=== PATIENT | male | born 1985 | race Caucasian/White ===

== ENCOUNTER → 2019-10-23 | Outpatient (CLI) | payer SELFPAY | PROVIDERS: Family Provider Nurse Practitioner | DX: J01.90 Acute sinusitis, unspecified (principal); R07.89 Other chest pain | CPT/HCPCS: 71046 ==

== ENCOUNTER → 2019-10-29 12:32 | Outpatient (BNVA) | payer OTHER, SELFPAY | PROVIDERS: Family Provider Nurse Practitioner; PCP Family Medicine; Visit Provider Counselor Professional | DX: F43.12 Post-traumatic stress disorder, chronic (principal); F32.2 Major depressive disorder, single episode, severe without psychotic features; F41.1 Generalized anxiety disorder | CPT/HCPCS: 90834 ==

== ENCOUNTER 2019-11-16 07:54 | Outpatient (CLI) | payer OTHER, SELFPAY ==
--- NOTE | 2019-11-16 08:19 | CT_ITS ---
WS: [id number] CT CHEST TECHNIQUE: Noncontrast CT of the chest with coronal and sagittal reformatted images. CLINICAL INFORMATION: PLEURITIC CHEST PAIN COMPARISON: None. DLP: [id number] scans at [facility] use at least one of these dose optimization techniques: automat ed exposure control; mA and/or kV adjustment per patient size (includes targeted exams where dose is matched to clinical indication); or iterative reconstruction. FINDINGS: Well-circumscribed low-attenuation right middle mediastinal low-attenuation lesion as seen on the rec ent radiograph. This measures approximately 5.1 x 4.6 x 6.0 cm and abuts the left atrium. Low-attenua tion lesion demonstrates no significant enhancement. Cystic lesion is in a subcarinal location eccent aurelio to the right and abuts the right mainstem bronchus and esophagus. No visualized fistulous connect ion. Minimal narrowing of the right distal main stem bronchus. This lesion is likely long-standing an d benign. Calcified granuloma left lung base. No acute pulmonary infiltrates. No consolidation pleural fluid. N o suspicious pulmonary parenchymal opacities. No mediastinal or hilar lymphadenopathy. Normal thyroid gland. Calcified left hilar nodes. No axillar y lymphadenopathy. Normal thyroid gland. Adrenal glands are normal. CT/CT chest wo/w con [id number] IMPRESSION: 1. Well-circumscribed middle mediastinal cystic lesion measuring 5.1 x 4.6 x 6 .0 CM. No enhancement. This abuts the right mainstem bronchus and esophagus wit h mild narrowing. 2. This has a benign appearance and is likely congenital or long-standing. Di fferential considerations include esophageal duplication cyst, bronchogenic cys t, or pericardial cyst. 3. No fistulous connections between the cyst and the endobronchial tree or eso phagus. 4. No acute pulmonary infiltrates. 5. No mediastinal or hilar lymphadenopathy.
[2019-11-16] MEDS: iohexol 300 mg/mL 100 mL Btl IV (09:10)
== END 2019-11-16 07:55 | disposition home or self-care (01) ==
LOC: RADWPI 07:58
PROVIDERS: Family Provider Nurse Practitioner; PCP Nurse Practitioner Family; Visit Provider Nurse Practitioner Family
DX: R07.89 Other chest pain (principal); Q34.1 Congenital cyst of mediastinum
CPT/HCPCS: 71270; Q9967

== ENCOUNTER → 2019-11-19 14:43 | Outpatient (BNVA) | payer OTHER, SELFPAY | PROVIDERS: Family Provider Nurse Practitioner; PCP Nurse Practitioner Family; Visit Provider Counselor Professional | DX: F43.12 Post-traumatic stress disorder, chronic (principal); F32.2 Major depressive disorder, single episode, severe without psychotic features; F41.1 Generalized anxiety disorder | CPT/HCPCS: 90834 ==

== ENCOUNTER 2020-01-18 05:57 | Day surgery (SDC) | payer OTHER, SELFPAY ==
[2020-01-18] VITALS (9 sets, daily range): BP systolic 110–136; BP diastolic 72–94; PULSE 82–121; RESP 14–20; TEMP 36.4–36.9; O2SAT 94–98
[2020-01-18] MEDS: sodium chloride 0.9% 1,000 ML 30 ML IV (06:19)
--- NOTE | 2020-01-18 06:33 | ANES.PREANE2 ---
Pre-Anesthetic Assessment Pre-Anesthetic Assessment: Height/Weight: Height 1.91 m Weight 72.575 kg Temp Pulse Resp BP Pulse Ox 98.4 F 82 18 131/79 98 01/18/20 06:12 01/18/20 06:12 01/18/20 06:12 01/18/20 06:12 01/18/20 06:12 Preop Diagnosis: Bronchogenic Cyst Proposed Procedure: Operation Date: 01/18/20 07:00 Proposed Procedures p Ebus Aspirationof Broncogentic Cyst 45529 91826/G98.4(Not Applicable) - Wendi Louis MD Familial anesthetic complications: No trouble with previous anesthesia Was Beta Dino taken within 24 hours: N/A Last intake: Intake Last Liquid Date 01/17/20 Last Liquid Time 23:45 Last Solid Date 01/17/20 Last Solid Time 22:30 Social: Social History: No alcohol and No tobacco Exam: Pre-Anes Outpt Exam: alert, oriented x 3, clear to auscultation bilaterally and regular rate & rhythm Airway: Cervical ROM: WNL MP: 3 Dentition: Chipped Pulmonary: Comments: cyst w/ coughing and SOB (months) CV/HEM: CV/HEM: Murmur : : None reported Hepatic: Hepatic: None reported GI: GI: None reported Metabolic: Metabolic: None reported Musc/skel: Musc/skel: None reported Neuropsych: Neuropsych: None reported Anesthetic Plan: ASA status: 2 Anesthesia: General Risk of > 500 ml blood loss (7ml/kg in children): No Meds/Allergies Current Medications: Current Medications Generic Name Dose Route Start Last Admin Trade Name Freq PRN Reason Stop Dose Admin Sodium Chloride 1,000 mls @ 30 ml s/hr 01/18/20 06:15 01/18/20 06:19 Sodium Chloride 0.9% IV 01/19/20 06:14 30 mls/hr .Q24H TORSTEN Administration PFSH Anesthesia PFSH: Social History Smoking and tobacco status: former smoker Quit status (tobacco): has quit using tobacco Year quit tobacco: 2009 - 1.5 PPD x 8 Years Second hand smoke exposure: Yes Alcohol intake: never Lives independently: Yes Household members: spouse and children Marital status: Current occupational status: employed Current occupational exposures/hazards: Yes History of recent travel: No Current gender identity: Male Data Anesthesia Cardiac Studies: No Data to Display
--- NOTE | 2020-01-18 06:42 | W.PM.OPSUD ---
Surgery/Procedure H&P Update DATE OF PROCEDURE: January 18, 2020 DATE H&P PERFORMED: 01/15/20 H&P UPDATE INFORMATION: I have reviewed H&P completed within last 30 days, I have examined patient prior to procedure and No changes to prior documentation PREOP DIAGNOSIS: Bronchogenic Cyst PLANNED PROCEDURE: Bronchoscopy with inspection of the airway, possible endobronchial biopsy, bronchoalveolar lavage, endobronchial ultrasound-guided transbronchial needle aspiration of the bronchogenic cyst and control of bleeding. Operation Date: 01/18/20 07:00 Proposed Procedures p Ebus Aspirationof Broncogentic Cyst 66265 03875/G98.4(Not Applicable) - Bipsaritha Louis MD
[2020-01-18] MEDS: lidocaine 1% INJ 20 mL XX (07:14)
--- NOTE | 2020-01-18 07:52 | SUR.PHASEI ---
0749 PATIENT TO PACU AT THIS TIME. RR EVEN AND UNLABORED. ORAL AIRWAY IN PLACE, PLACED ON SIMPLE MASK AT 8L, SPO2 95%. ORAL AIRWAY REMOVED AT 0750.
--- NOTE | 2020-01-18 08:21 | SUR.PHASEI ---
0818 PATIENT TO OPS AT THIS TIME. COUGH NOTED. RR EVEN AND UNLABORED. SPO2 95-96% ON RA. PATIENT DENIES PAIN.
--- NOTE | 2020-01-18 08:27 | PM.OP ---
Operative Report Date of procedure: January 18, 2020 Pre-op Diagnosis: Bronchogenic Cyst Post-op diagnosis: same Brief History: This is a 34-year-old young man coming in for endobronchial sound guided transbronchial needle aspiration of bronchogenic cyst. Procedure: Name of the procedure: Bronchoscopy with inspection of the airway, endobronchial ultrasound-guided transbronchial needle aspiration of subcarinal bronchogenic cyst and control of bleeding. Indication: Cystic subcarinal mass. Anesthesia: General anesthesia. Local anesthesia: The debbie in the right and left mainstem bronchi were anesthetized with 1% lidocaine, 3 mL. Description of the procedure: The procedure was explained to the patient and the consent was obtained. The patient was brought to the OR. The patient underwent endotracheal intubation for general anesthesia. Following induction of general anesthesia, the bronchoscope was advanced through the ET tube. The lower trachea appeared to be normal. The debbie was splayed. The debbie, the right and left mainstem bronchi are anesthetized with 1% lidocaine. In a systematic manner bilateral bronchial tree was then examined. The bronchoscope was advanced into the left mainstem bronchus. The left upper lobe, lingula and left lower lobe bronchi were examined up to the third subsegmental level and no abnormalities were identified. There is no endobronchial lesion, active bleeding or mucous plug was noted. The bronchoscope was then introduced into the right mainstem bronchus. The right upper lobe, right middle lobe and right lower lobe bronchi were examined up to the third subsegmental level and no abnormalities were identified. The endobronchial ultrasound was introduced through the ET tube. No mediastinal and hilar lymphadenopathy was identified with the ultrasound. Cystic subcarinal lesion with gelatinous material was noted with the ultrasound. There was no significant septation. Transbronchial needle aspiration was performed. Multiple samples were obtained. Thick serous fluid was aspirated. I was unable to aspirate the cystic lesion due to the gelatinous nature of the fluid. Samples: 1. The transbronchial needle aspiration of the subcarinal cystic mass was sent for cell count and differential, cytology, Gram stain culture, fungal stain and culture, a baseline culture. Complications: There was no immediate complications.
[2020-01-18 15:17] LABS: RBC, Body Fluid 80 10^3/uL (0-0)
[2020-01-18 15:18] LABS: Apprearance, Body Fluid TURBID (CLEAR); Color, Body Fluid PALE YELLOW (PALE YELLOW); PATH Referral YES
== END 2020-01-18 08:50 | disposition home or self-care (01) ==
PROVIDERS: Family Provider Nurse Practitioner; PCP Nurse Practitioner Family; Visit Provider Internal Medicine Critical Care Medicine
PROC: BB4BZZZ Ultrasonography of Pleura (ICD-10-PCS; CPT 31645; principal; 2020-01-18 07:00)
DX: J98.4 Other disorders of lung (principal); Z87.891 Personal history of nicotine dependence; Z82.49 Family history of ischemic heart disease and other diseases of the circulatory system; Z83.3 Family history of diabetes mellitus
CPT/HCPCS: 31645; 12345; 80500; 87015; 87070; 87075; 87102; 87116; 87176; 87205; 87206; 87801; 88112; 88305; 89050; J2001; J2704; J3010; J3490; J7030